=== PATIENT | female | born 1990 | race Caucasian/White ===

== ENCOUNTER 2017-05-26 06:50 | Day surgery (SDC) | payer BC ==
[~2017-05-26] VITALS: Ht 180.3 cm; Wt 143.3 kg
--- NOTE | ~2017-05-26 | OP ---
Record Of Operation [facility] [address] [place]. [address] NAME: ERIBERTO CASIANO : 86 STATUS : REG [facility] [place] PAT#: [id number] AGE: 26 ADM/REG DATE : 05/26/17 MR#: [id number] REPORT SERV DATE: 05/26/17 DICTATED BY: AXEL AGUILAR DATE: 05/26/17 REPORT STATUS : Draft TRANSCRIBED BY: MODL DATE: 05/26/17 DATE OF PROCEDURE: PREOPERATIVE DIAGNOSIS: Herniated nucleus polyposis, central right L5-S1. POSTOPERATIVE DIAGNOSIS: Herniated nucleus polyposis, central right L5-S1. PROCEDURE: 1. Microscopic and navigation-assisted surgery. 2. L5-S1 hemilaminotomy and microdiskectomy. INTERMEDIATE PROJECT MANAGER: Ravi Mayberry. ANESTHESIA: General. ESTIMATED BLOOD LOSS: 10 mL. INDICATION: 26-year-old female, with back pain, left and right leg pain. The patient at times has had more pain on the left side, today, when I questioned her in the preop area, she described more pain on the right side to me, then later described more left buttock pain on the left side to my circulating nurse. She has mainly significant central canal herniation and right-sided impingement. On the left side, there is a slight bulging, but minimal impingement. The patient has failed conservative care and is brought to surgery for a hemilaminotomy and microdiskectomy. If we can remove the fragment from the central canal adequately, we will make a unilateral right-sided approach if we cannot get significant disk removal from the central canal, then we would go to the left side for a more direct approach. Prior to surgery, risks, benefits, alternatives, and expectations were explained. Consent form is signed. Today, in the preop the patient was identified, all questions were answered. The patient voiced understanding the risks, willingness to accept those, and requested to proceed with surgery. DESCRIPTION OF PROCEDURE: Antibiotic prophylaxis was given. Neurophysiology monitoring leads were inserted. The patient was brought to the operative suite. General anesthetic including endotracheal intubation was administered. She was placed prone on a Vivek spine frame. Bony prominences were carefully padded. Thoracolumbar spine was scrubbed with Hibiclens solution. DuraPrep was painted. Sterile drapes were applied. Because of the complexity of surgery and the need to identify the correct level of surgery intraoperatively, as well as desire to carry out the safest, and most precise dissection, I felt intraoperative navigation was mandatory. A small stab wound was carried out over the right posterior superior iliac spine. A percutaneous pin with navigational frame attached was inserted in PSIS. Intraoperative CT scan with O-arm was obtained, CT information was used to register the navigational system. Record Of Operation [facility] [address] [place]. [address] NAME: ERIBERTO CASIANO : 86 STATUS : REG [facility] [place] PAT#: [id number] AGE: 26 ADM/REG DATE : 05/26/17 MR#: [id number] REPORT SERV DATE: 05/26/17 DICTATED BY: AXEL AGUILAR DATE: 05/26/17 REPORT STATUS : Draft TRANSCRIBED BY: MORE DATE: 05/26/17 With navigational assistance, I identified L5-S1. A midline skin incision of 2 cm was carried out. The blunt navigated probe was placed through the fascia and muscle, and docked over the interlaminar space on the right side. Muscle dilator was inserted followed placement of a tubular retractor attached to an arm mount on the table. The microscope was sterilely draped and used throughout the remainder of the procedure. With navigational assistance, I determined the amount of lamina of L5 to remove in order to reach the cephalad boundary of the disk space. I also determined the amount of medial facet joint to reach the lateral aspect of the thecal sac. I used a 3 mm alex bur and removed 20% of the inferior lamina of L5 and also removed 20% of medial facet joint of L5-S1. After the lateral ligamentum flavum was removed, the thecal sac and nerve root were gently retracted toward the midline and a disk osteophyte complex was very large and impinging the central canal, as well as the S1 nerve root. I used a alex bur to debride the calcified cap on this off herniation, a huge herniation was then removed in two very large pieces. The central canal even extending across to the left side. The soft tissue disk was removed which was a very large portion of the nuclear material. After the decompression, there was definitely no impingement in the central canal on the right side. I felt the left-side had some decompression via a large fragment that came from the center and toward the left. I did not feel there was especially taking off as much disk as we had and with the partial medial facetectomy on the right side. I did not want to create more destabilizing within the left side approach, thus, I opted to avoid left-sided look at the disk directly. Wounds were irrigated. The retractor was removed. The fascial opening was allowed to reapproximate itself. The subcutaneous tissue was closed with 2-0 Vicryl sutures, and 2-0 vertical mattress nylon suture was used for skin closure. Sterile dressings were applied. The patient was turned to supine position, awakened, extubated, and taken to recovery room in satisfactory condition having tolerated the procedure well. Sponge, needle, and instrument counts were correct. No complications noted. NICHOLE/LEWISL Axel Aguilar D.O. / [id number] CC: Axel Aguilar D.O.
[~2017-05-26 06:50] MED LIST: MOBIC15 MG PO; NEUR300 PO
== END 2017-05-26 14:16 | disposition home or self-care (01) ==
LOC: SDC 06:50
PROVIDERS: Orthopaedic Surgery Orthopaedic Surgery of the Spine
PROC: 01NB0ZZ Release Lumbar Nerve, Open Approach (ICD-10-PCS; principal; 2017-05-26 08:15)
DX: M51.27 Other intervertebral disc displacement, lumbosacral region (principal); J45.909 Unspecified asthma, uncomplicated; M51.36 Other intervertebral disc degeneration, lumbar region; F41.9 Anxiety disorder, unspecified; F32.9 Major depressive disorder, single episode, unspecified; G62.9 Polyneuropathy, unspecified; E66.01 Morbid (severe) obesity due to excess calories; Z88.1 Allergy status to other antibiotic agents; Z90.49 Acquired absence of other specified parts of digestive tract
CPT/HCPCS: 84703; 88304; 88311; J0690; J1885; J2250; J2270; J2274; J2405; J2710; J3010